=== PATIENT | female | born 1985 | race Caucasian/White ===

== ENCOUNTER 2021-01-14 10:22 | Inpatient (IN) ==
[~2021-01-14 10:22] MED LIST: Azithromycin 500 MG in 0.9 % Sodium Chloride 250 ML IVPB PRN; CeFAZolin 2,000 MG/120 ML BAG IVPB ONE; Famotidine 20 MG/2 ML VIAL IVP ONE; Metoclopramide 10 MG/2 ML VIAL IVP ONE
[2021-01-14] MEDS ORDERED: Betamethasone Acet/SodPhos 30 MG/5 ML VIAL IM SCH (10:30)
[2021-01-14] MEDS ORDERED: Ringers Solution, Lactated 2,000 ML ONE (10:32)
[2021-01-14] MEDS ORDERED: *HR* Morphine Sulfate/PF 10 MG/10 ML AMPUL ONE (10:41)
[2021-01-14] MEDS ORDERED: *HR* FentaNYL (PF) 100 MCG/2 ML VIAL ONE (10:41)
[2021-01-14] MEDS ORDERED: *HR* Phenylephrine 10 MG/ML VIAL ONE (10:42)
[2021-01-14 11:11] LABS: Basophils % 0.2 %; Eosinophils % 0.3 %; Hematocrit 36.5 % (35.3-44.9); Hemoglobin 12.7 g/dL (11.5-15.4); Immature Granulocytes % 0.4 % (0-4); Lymphocytes # 1.2 K/mcL (0.6-4.6); Lymphocytes % 10.3 %; Mean Corpuscular HGB Conc 34.8 g/dL (31.6-35.5); Mean Corpuscular Hemoglobin 30.2 pg (28.0-33.3); Mean Corpuscular Volume 86.7 fL (83.0-100.0); Monocytes # 0.6 K/mcL (0.0-1.3); Monocytes % 5.4 %; Neutrophils # 9.3 K/mcL (1.6-8.9); Platelet Count 212 K/mcL (140-400); Red Blood Count 4.21 M/mcL (3.82-4.97); Red Cell Distribution Width 13.5 % (11.5-14.5); Segmented Neutrophils % 83.4 %; White Blood Count 11.1 K/mcL (4.3-11.1)
[2021-01-14] MEDS ORDERED: Ondansetron 4 MG/2 ML VIAL ONE (11:15)
[2021-01-14] MEDS ORDERED: Lidocaine -MPF 2% 5 ML VIAL ONE (11:18)
[2021-01-14] MEDS ORDERED: *HR* Oxytocin 10 UNIT/ML VIAL IM ONE ×2 (11:22→11:56)
[2021-01-14 11:36] LABS: Influenza A PCR Negative (Negative); Influenza B PCR Negative (Negative); Resp. Syncytial Virus PCR Negative (Negative)
[2021-01-14] MEDS ORDERED: Promethazine 6.25 MG in Water for inj. (sterile) 20 ML IVPB PRN (11:39)
[2021-01-14] MEDS ORDERED: *HR* OxyCODONE Immed Rel 5 MG TABLET PO PRN ×2 (11:39→14:50)
[2021-01-14] MEDS ORDERED: *HR* FentaNYL (PF) 100 MCG/2 ML VIAL IVP PRN (11:39)
[2021-01-14] MEDS ORDERED: Naloxone 0.4 MG/ML INJ IVP PRN (11:39)
[2021-01-14] MEDS ORDERED: Acetaminophen IV 1,000 MG/100 ML BAG IVPB ONE (11:42)
[2021-01-14 11:43] LABS: SARS-CoV-2 by PCR (In House) Negative (Negative)
[2021-01-14] MEDS ORDERED: Ketorolac 30 MG/ML VIAL ONE (11:54)
[2021-01-14] MEDS ORDERED: Ondansetron 4 MG/2 ML VIAL IVP PRN (14:50)
[2021-01-14] MEDS ORDERED: Oxytocin 20 units/ LR 1000 mL 20 UNIT/1,000 ML BAG IVC SCH ×2 (14:50)
[2021-01-14] MEDS ORDERED: Rho Immune Globulin 1,500 UNIT SYRINGE IM ONE (14:50)
[2021-01-14] MEDS ORDERED: Simethicone 80 MG TAB.CHEW PO PRN (14:50)
[2021-01-14] MEDS ORDERED: Metoclopramide 10 MG/2 ML VIAL IVP PRN (14:50)
[2021-01-14 15:44] LABS: Amphetamine Screen,Urine Negative ng/mL (Cutoff=1000); Barbiturate Screen,Urine Negative ng/mL (Cutoff=200); Benzodiazepines Screen,Urine Negative ng/mL (Cutoff=200); Cannabinoid Screen,Urine Negative ng/mL (Cutoff = 50); Cocaine Screen,Urine Negative ng/mL (Cutoff= 300); Opiate Screen,Urine Negative ng/mL (Cutoff=300); Phencyclidine Screen,Urine Negative ng/mL (Cutoff=25)
[2021-01-14] MEDS: Acetaminophen 325 MG TABLET PO SCH (18:00)
[2021-01-14] MEDS: Ibuprofen 600 MG TABLET PO SCH (18:00)
[2021-01-15] MEDS: Ibuprofen 600 MG TABLET PO SCH ×4 (02:59→21:28)
[2021-01-15] MEDS: Acetaminophen 325 MG TABLET PO SCH ×4 (03:00→21:28)
[2021-01-15 03:18] LABS: Basophils % 0.2 %; Eosinophils % 0.1 %; Hematocrit 27.5 % (35.3-44.9); Hemoglobin 9.6 g/dL (11.5-15.4); Immature Granulocytes % 0.5 % (0-4); Immature Platelets 6.2 % (1.1-6.1); Lymphocytes # 1.2 K/mcL (0.6-4.6); Lymphocytes % 6.7 %; Mean Corpuscular HGB Conc 34.9 g/dL (31.6-35.5); Mean Corpuscular Hemoglobin 30.7 pg (28.0-33.3); Mean Corpuscular Volume 87.9 fL (83.0-100.0); Mean Platelet Volume 10.9 fL (9.4-12.4); Monocytes # 1.3 K/mcL (0.0-1.3); Monocytes % 7.4 %; Neutrophils # 15.2 K/mcL (1.6-8.9); Platelet Count 202 K/mcL (140-400); Red Blood Count 3.13 M/mcL (3.82-4.97); Red Cell Distribution Width 13.7 % (11.5-14.5); Segmented Neutrophils % 85.1 %; White Blood Count 17.8 K/mcL (4.3-11.1)
[2021-01-15] MEDS: *HR* OxyCODONE Immed Rel 5 MG TABLET PO PRN ×2 (06:48→13:35)
[2021-01-15] MEDS ORDERED: Prenatal Vit/FA 1 EACH TABLET PO SCH (09:00)
[2021-01-15] MEDS ORDERED: NON-FORMULARY MEDICATION 1 EACH EACH (Prenatal Vitamin Tablet 1 TAB) PO SCH (09:00)
[2021-01-15] MEDS ORDERED: Rho Immune Globulin 1,500 UNIT SYRINGE IM ONE (14:00)
[2021-01-15 23:00] VITALS: TEMP 98.3; O2SAT 98
[2021-01-16] MEDS: Acetaminophen 325 MG TABLET PO SCH ×2 (03:33→14:16)
[2021-01-16] MEDS: Ibuprofen 600 MG TABLET PO SCH ×2 (03:33→14:15)
[2021-01-16 07:48] VITALS: BP 118/72; PULSE 100
== END 2021-01-16 15:50 | disposition home or self-care (01) | DRG 783 ==
LOC: 1NENULAB → 1NENUOBS 14:19
PROVIDERS: ADMIT Student in an Organized Health Care Education/Training Program; ATTEND Student in an Organized Health Care Education/Training Program